=== PATIENT | female | born 1995 | race African-American/Black ===

== ENCOUNTER 2021-10-03 10:07 | Emergency (ER) | payer OTHER ==
--- NOTE | 2021-10-03 10:42 | ED ---
General Adult HPI - General Chief complaint: Shortness of Breath Stated complaint: covid symptoms Time Seen by Provider: 10/03/21 10:12 Source: patient, EMS Mode of arrival: EMS Limitations: no limitations - History of Present Illness Initial comments: Dictation was produced using [employer] dictation software. please excuse any grammatical, word or spelling errors. Chief Complaint: 26-year-old female presents with shortness of breath cough and runny nose History of Present Illness: 26-year-old female brought in by EMS. Patient stat es that she is here for shortness of breath, cough, runny nose and sore throat. Patient was seen at the urgent care a few days ago was tested for COVID-19. She's been sick since Wednesday. Patient has past medical history of asthma. Denies . Patient states at the urgent care she was tested for COVID-19 but has not received any results. Patient denies . The ROS documented in this emergency department record has been reviewed and confirmed by me. Those systems with pertinent positive or negative responses have been documented in the HPI. All other systems are other negative and/or noncontributory. PHYSICAL EXAM: General Impression: Alert and oriented x3, not in acute distress HEENT: Normocephalic atraumatic, extra-ocular movements intact, pupils equal and reactive to light bilaterally, mucous membranes moist. Cardiovascular: Heart regular rate and rhythm Chest: Able to complete full sentences, no retractions, no tachypnea Abdomen: abdomen soft, non-tender, non-distended, no organomegaly Musculoskeletal: Pulses present and equal in all extremities, no peripheral edema Motor: no focal deficits noted Neurological: CN II-XII grossly intact, no focal motor or sensory deficits noted Skin: Intact with no visualized rashes Psych: Normal affect and mood ED course: 26-year-old well-appearing female presents emergency department for respiratory infection symptoms for the last 5 days. Signs upon arrival are within acceptable limits. Patient's well-appearing at the bedside. Physical examination is benign. 4 panel by PCR is negative for influenza, RSV and rotavirus. Urine hCG is negative. Chest x-ray shows no acute processes. Given that patient is having persistent respiratory symptoms patient likely benefit from a course of antibiotic treatment. Patient given a dose of Decadron. Patient discharged. Reevaluated at 12:15 PM finally stable medical condition. - Related Data Previous Rx's Medication Instructions Recorded Azithromycin [Zithromax Z-pack (6 0 mg PO DIRECTED 5 Days #6 tab 10/03/21 tabs)] Allergies Allergy/AdvReac Type Severity Reaction Status Date / Time No Known Allergies Allergy Verified 10/03/21 11:57 Review of Systems ROS Statement: Those systems with pertinent positive or pertinent negative responses have been documented in the HPI. ROS Other: All systems not noted in ROS Statement are negative. Past Medical History Past Medical History: Asthma History of Any Multi-Drug Resistant Organisms: None Reported Past Surgical History: No Surgical Hx Reported Past Psychological History: No Psychological Hx Reported Smoking Status: Unknown if ever smoked Past Alcohol Use History: None Reported Past Drug Use History: None Reported General Exam Limitations: no limitations Course Vital Signs 10/03/21 10/03/21 10:08 10:12 Temperature 98.9 F Pulse Rate 63 Respiratory 18 16 Rate Blood Pressure 132/86 O2 Sat by Pulse 99 Oximetry Medical Decision Making - Lab Data Lab Results 10/03/21 10/03/21 Range/Units 10:15 10:15 Urine HCG, Qual Not Detected (Not Detectd) Influenza Type A (PCR) Not Detected (Not Detectd) Influenza Type B (PCR) Not Detected (Not Detectd) RSV (PCR) Not Detected (Not Detectd) SARS-CoV-2 (PCR) Not Detected (Not Detectd) Disposition Clinical Impression: URI (upper respiratory infection) Disposition: HOME SELF-CARE Condition: Good Instructions (If sedation given, give patient instructions): Upper Respiratory Infection (ED) Prescriptions: Azithromycin [Zithromax Z-pack (6 tabs)] 0 mg PO DIRECTED 5 Days #6 tab Is patient prescribed a controlled substance at d/c from ED?: No Referrals: None,Stated [Primary Care Provider] - 1-2 days Time of Disposition: 12:16
--- NOTE | 2021-10-03 11:36 | XR ---
EXAMINATION TYPE: XR chest 1V portable DATE OF EXAM: 10/03/2021 COMPARISON: None INDICATION: Cough chills fever TECHNIQUE: Single frontal view of the chest is obtained. FINDINGS: The heart size is normal. The pulmonary vasculature is normal. The lungs are clear. IMPRESSION: 1. No acute pulmonary process.
[2021-10-03] MEDS ORDERED: dexAMETHasone 4 MG TAB PO STA (12:17)
[2021-10-03 12:27] VITALS: BP 111/68; PULSE 71; RESP 18; TEMP 99
== END 2021-10-03 12:34 | disposition home or self-care (01) ==
LOC: EC 10:07
DX: J06.9 Acute upper respiratory infection, unspecified (principal); Z20.822 Contact with and (suspected) exposure to COVID-19; J45.909 Unspecified asthma, uncomplicated
CPT/HCPCS: 81025; 87636; 71045; 99285; J8540